=== PATIENT | male | born 1980 | race Caucasian/White ===

== ENCOUNTER 2023-03-12 15:12 | Emergency (ER) | payer BC, OTHER, SELFPAY ==
[2023-03-12] VITALS (50 sets, daily range): BP systolic 149–189; BP diastolic 99–122; PULSE 71–102; RESP 11–30; TEMP 36.6; O2SAT 91–98; BMI 29.9
--- NOTE | 2023-03-12 15:19 | DI.RAD.S_ITS ---
PROCEDURE: XR CHEST 1V INDICATIONS: Chest pain TECHNIQUE: One view of the chest was acquired. COMPARISON: None. FINDINGS: Surgical changes and devices: None. Lungs and pleura: Lungs are clear. No pleural effusions or pneumothorax. Mediastinum: Mediastinal contours appear normal. Heart size is normal. Bones and chest wall: No suspicious bony lesions. Overlying soft tissues appear unremarkable. IMPRESSION: No acute cardiopulmonary disease process. Dictated by: Magalis Blood MD, PhD on 03/12/2023 at 16:17 Approved by: Magalis Blood MD, PhD on 03/12/2023 at 16:17
[2023-03-12 15:31] LABS: Add Manual Diff / Slide Review NO; Basophils Absolute Auto 100 /uL (0-100); Basophils Percent Auto 0.9 % (0-2); Eosinophils Absolute Auto 400 /uL (0-450); Hematocrit 46.7 % (41-53); Hemoglobin 16.2 g/dL (13.5-17.5); Lymphocytes Absolute Auto 1800 /uL (1100-4500); Lymphocytes Percent Auto 24.6 % (25-40); Mean Corpuscular HGB Conc 34.7 % (30-36); Mean Corpuscular Hemoglobin 31.1 PG (26-34); Mean Corpuscular Volume 89.5 fL (80-100); Monocytes Absolute Auto 800 /uL (0-900); Monocytes Percent Auto 10.8 % (3-14); Neutrophils Absolute Auto 4200 /uL (1500-7000); Neutrophils Percent Auto 58.7 % (50-75); Platelet Count 239 X10^3/uL (150-400); Red Blood Cell Count 5.22 X10^6/uL (4.5-5.9); Red Cell Distribution Width 12.2 % (11.6-14.8); White Blood Cell Count 7.2 X10^3/uL (4.5-11.0)
[2023-03-12 15:44] LABS: Alanine Aminotransferase 72 IU/L (<50); Albumin 4.9 g/dL (3.5-5.0); Albumin Globulin Ratio 1.4 (1.0-2.8); Alkaline Phosphatase 90 U/L (38-126); Aspartate Aminotransferase 40 IU/L (17-59); BUN Creatinine Ratio 20.7 (6-22); Bilirubin Total 0.5 mg/dL (0.2-1.3); Blood Urea Nitrogen 17 mg/dL (9-20); Calcium 9.8 mg/dL (8.4-10.2); Carbon Dioxide 27 mmol/L (22-32); Chloride 98 mmol/L (98-107); Creatine Kinase 104 U/L (55-170); Estimated Glomerular Filt Rate > 60 mL/min (>60); Globulin 3.4 g/dL (1.7-4.1); Glucose 106 mg/dL (70-100); HEMOLYSIS < 15 (0-50); Lipase 82 U/L (23-300); Potassium 3.8 mmol/L (3.4-5.1); Sodium 135 mmol/L (137-145); Total Protein 8.3 g/dL (6.3-8.2)
--- NOTE | 2023-03-12 15:54 | ED_ITS ---
HPI - Chest Pain <Hussain Lopez DO - Last Filed: 03/18/23 17:59> General Chief Complaint: Chest Pain Stated Complaint: cardiac issues Time Seen by Provider: 03/12/23 15:19 Source: patient Mode of arrival: Ambulatory Limitations: no limitations History of Present Illness HPI narrative: Patient is a 42-year-old male who is here for evaluation of chest tightness and lightheadedness. He states that this afternoon he was at his normal state of health. He stated that he moved something heavy and then went up some stairs in order to answer a work call when he suddenly started to not feel very well. He stated that currently his symptoms have improved from when they were at its worse but they are not completely gone. He does have a history of asthma does not feel like his breathing has changed at all. He states he really did not have chest pain but just some heaviness. He stated that his blood pressure was elevated and he was lightheaded. He is never had any symptoms like this in the past. No lower extremity swelling. No abdominal pain or nausea or vomiting. Related Data Home Medications Medication Instructions Recorded Confirmed ALBUTEROL SULFATE (Ventolin / ##0 10/07/09 03/06/19 Proventil) FLUTICASONE 44MCG INHALER 1 spray INH ##0 10/07/09 03/06/19 (FLOVENT) Previous Rx's Medication Instructions Recorded sulfamethoxazole 800 1 tab PO BID #20 tabs 03/06/19 mg-trimethoprim 160 mg tablet (Bactrim DS) Allergies Allergy/AdvReac Type Severity Reaction Status Date / Time No Known Drug Allergies Allergy Verified 03/12/23 15:23 Review of Systems <Hussain Lopez DO - Last Filed: 03/18/23 17:59> Constitutional Constitutional: Reports system reviewed and no additional complaints, except as documented Cardiovascular Cardiovascular: Reports system reviewed and no additional complaints, except as documented Respiratory Respiratory: Reports system reviewed and no additional complaints, except as documented Gastrointestinal Gastrointestinal: Reports system reviewed and no additional complaints, except as documented Integumentary/Breasts Skin/Breast: Reports system reviewed and no additional complaints, except as documented Hematologic/Lymphatic On Anticoagulants: No Patient History <Hussain Lopez DO - Last Filed: 03/18/23 17:59> Social History Smoking Status: Never smoker Smoking Status: Never smoker alcohol intake frequency: 3 or more drinks per day Substance Use Type: crack/cocaine Exam <DO Cindi Laughlin Last Filed: 03/18/23 17:59> Initial Vital Signs Initial Vital Signs: Vital Signs Pulse Rate 102 H 03/12/23 15:18 Respiratory Rate 18 03/12/23 15:18 Pulse Oximetry 95 03/12/23 15:18 Const General: cooperative, comfortable and No ill appearing HENMT Head: normal to inspection and normocephalic Resp Effort & Inspection: not labored and tachypneic Auscultation: wheezes Cardio Rate: regular rate Rhythm: regular rhythm GI Inspection: normal to inspection and non-distended Skin General: no rashes or lesions noted Neuro General: patient alert, patient awake and moves all extremities Speech: speech normal Extrem General: No edema <DO Cindi Muhammad Last Filed: 03/12/23 23:56> Initial Vital Signs Initial Vital Signs: Vital Signs Pulse Rate 102 H 03/12/23 15:18 Respiratory Rate 18 03/12/23 15:18 Pulse Oximetry 95 03/12/23 15:18 Scores <DO Cindi Laughlin Last Filed: 03/18/23 17:59> HEART Score Heart Score history: Slightly Suspicious Heart Score EKG: Normal Heart Score Age: < 45 years old Heart Score risk factors: 1-2 risk factors Heart Score troponin: < or = to normal limit Heart Score Total: 1 <DO Cindi Muhammad Last Filed: 03/12/23 23:56> HEART Score Heart Score Total: 1 Course <DO Cindi Laughlin Last Filed: 03/18/23 17:59> Orders Ordered: ED Orders 03/12/23 15:19 XR chest 1V Stat 03/12/23 15:25 Complete Blood Count AUTO DIFF Stat Comprehensive Metabolic Panel Stat Lipase Stat Troponin & CK Cardiac Panel Stat 03/12/23 15:50 EKG-12 Lead Stat 03/12/23 18:30 Troponin & CK Cardiac Panel Stat Vital Signs Vital signs: Vital Signs - 8 hr 03/12/23 15:55 03/12/23 15:55 03/12/23 16:00 Pulse Rate 87 86 Respiratory Rate 18 16 Blood Pressure 173/114 H Pulse Oximetry 94 94 Oxygen Delivery Method 03/12/23 16:00 03/12/23 16:05 03/12/23 16:05 Pulse Rate 83 Respiratory Rate 19 Blood Pressure 182/111 H 181/107 H Pulse Oximetry 94 Oxygen Delivery Method 03/12/23 16:10 03/12/23 16:10 03/12/23 16:15 Pulse Rate 82 Respiratory Rate 21 Blood Pressure 173/108 H 173/107 H Pulse Oximetry 93 Oxygen Delivery Method 03/12/23 16:15 03/12/23 16:20 03/12/23 16:20 Pulse Rate 81 78 Respiratory Rate 13 12 Blood Pressure 173/110 H Pulse Oximetry 94 94 Oxygen Delivery Method 03/12/23 16:25 03/12/23 16:25 03/12/23 16:30 Pulse Rate 90 Respiratory Rate Blood Pressure 175/118 H 175/110 H Pulse Oximetry 94 Oxygen Delivery Method 03/12/23 16:30 03/12/23 16:36 03/12/23 16:36 Pulse Rate 87 87 Respiratory Rate 20 Blood Pressure 162/109 H Pulse Oximetry 94 93 Oxygen Delivery Method 03/12/23 16:40 03/12/23 16:40 03/12/23 16:45 Pulse Rate 79 Respiratory Rate 18 Blood Pressure 168/111 H 172/112 H Pulse Oximetry 93 Oxygen Delivery Method 03/12/23 16:45 03/12/23 16:50 03/12/23 16:50 Pulse Rate 80 79 Respiratory Rate 19 13 Blood Pressure 158/104 H Pulse Oximetry 94 95 Oxygen Delivery Method 03/12/23 16:55 03/12/23 16:55 03/12/23 17:00 Pulse Rate 84 Respiratory Rate 22 Blood Pressure 152/106 H 157/105 H Pulse Oximetry 95 Oxygen Delivery Method 03/12/23 17:00 03/12/23 17:05 03/12/23 17:05 Pulse Rate 81 78 Respiratory Rate 22 16 Blood Pressure 158/108 H Pulse Oximetry 94 93 Oxygen Delivery Method 03/12/23 17:10 03/12/23 17:10 03/12/23 17:15 Pulse Rate 77 Respiratory Rate 18 Blood Pressure 169/112 H 155/109 H Pulse Oximetry 93 Oxygen Delivery Method 03/12/23 17:15 03/12/23 17:20 03/12/23 17:20 Pulse Rate 74 76 Respiratory Rate 16 25 H Blood Pressure 154/107 H Pulse Oximetry 92 93 Oxygen Delivery Method 03/12/23 17:25 03/12/23 17:25 03/12/23 17:30 Pulse Rate 76 Respiratory Rate 15 Blood Pressure 149/108 H 154/110 H Pulse Oximetry 94 Oxygen Delivery Method 03/12/23 17:30 03/12/23 17:35 03/12/23 17:35 Pulse Rate 75 77 Respiratory Rate 30 H 17 Blood Pressure 167/112 H Pulse Oximetry 93 94 Oxygen Delivery Method 03/12/23 17:40 03/12/23 17:40 03/12/23 17:45 Pulse Rate 75 Respiratory Rate 11 L Blood Pressure 163/107 H 159/105 H Pulse Oximetry 91 Oxygen Delivery Method 03/12/23 17:45 03/12/23 17:50 03/12/23 17:50 Pulse Rate 76 79 Respiratory Rate 16 19 Blood Pressure 160/102 H Pulse Oximetry 94 94 Oxygen Delivery Method 03/12/23 17:55 03/12/23 17:55 03/12/23 18:00 Pulse Rate 78 77 Respiratory Rate 14 19 Blood Pressure 157/106 H Pulse Oximetry 95 95 Oxygen Delivery Method 03/12/23 18:00 03/12/23 18:05 03/12/23 18:05 Pulse Rate 81 Respiratory Rate 18 Blood Pressure 162/105 H 163/108 H Pulse Oximetry 94 Oxygen Delivery Method 03/12/23 18:10 03/12/23 18:10 03/12/23 18:15 Pulse Rate 77 Respiratory Rate 21 Blood Pressure 152/102 H 156/107 H Pulse Oximetry 94 Oxygen Delivery Method 03/12/23 18:15 03/12/23 18:24 03/12/23 18:24 Pulse Rate 79 75 Respiratory Rate 23 18 Blood Pressure 172/107 H Pulse Oximetry 94 97 Oxygen Delivery Method 03/12/23 18:25 03/12/23 18:25 03/12/23 18:30 Pulse Rate 74 75 Respiratory Rate 16 14 Blood Pressure 170/99 H Pulse Oximetry 97 95 Oxygen Delivery Method 03/12/23 18:30 03/12/23 18:35 03/12/23 18:35 Pulse Rate 78 Respiratory Rate 15 Blood Pressure 176/116 H 162/104 H Pulse Oximetry 96 Oxygen Delivery Method 03/12/23 18:40 03/12/23 18:40 03/12/23 18:45 Pulse Rate 76 Respiratory Rate 15 Blood Pressure 153/100 H 157/104 H Pulse Oximetry 96 Oxygen Delivery Method 03/12/23 18:45 03/12/23 18:50 03/12/23 18:50 Pulse Rate 75 71 Respiratory Rate 20 14 Blood Pressure 156/106 H Pulse Oximetry 96 94 Oxygen Delivery Method 03/12/23 18:55 03/12/23 18:55 03/12/23 19:00 Pulse Rate 77 74 Respiratory Rate 17 19 Blood Pressure 166/111 H Pulse Oximetry 95 94 Oxygen Delivery Method 03/12/23 19:01 03/12/23 19:01 03/12/23 19:05 Pulse Rate 81 Respiratory Rate 22 Blood Pressure 164/113 H 172/122 H Pulse Oximetry 95 Oxygen Delivery Method 03/12/23 19:05 03/12/23 19:10 03/12/23 19:10 Pulse Rate 82 80 Respiratory Rate 20 Blood Pressure 159/109 H Pulse Oximetry 95 95 Oxygen Delivery Method 03/12/23 19:20 03/12/23 19:20 Pulse Rate 78 Respiratory Rate 16 Blood Pressure 162/106 H Pulse Oximetry 94 Oxygen Delivery Method Room Air <Abelino Liz, DO - Last Filed: 03/12/23 23:56> Orders Ordered: ED Orders 03/12/23 15:19 XR chest 1V Stat 03/12/23 15:25 Complete Blood Count AUTO DIFF Stat Comprehensive Metabolic Panel Stat Lipase Stat Troponin & CK Cardiac Panel Stat 03/12/23 15:50 EKG-12 Lead Stat 03/12/23 18:30 Troponin & CK Cardiac Panel Stat Vital Signs Vital signs: Vital Signs - 8 hr 03/12/23 15:55 03/12/23 15:55 03/12/23 16:00 Pulse Rate 87 86 Respiratory Rate 18 16 Blood Pressure 173/114 H Pulse Oximetry 94 94 Oxygen Delivery Method 03/12/23 16:00 03/12/23 16:05 03/12/23 16:05 Pulse Rate 83 Respiratory Rate 19 Blood Pressure 182/111 H 181/107 H Pulse Oximetry 94 Oxygen Delivery Method 03/12/23 16:10 03/12/23 16:10 03/12/23 16:15 Pulse Rate 82 Respiratory Rate 21 Blood Pressure 173/108 H 173/107 H Pulse Oximetry 93 Oxygen Delivery Method 03/12/23 16:15 03/12/23 16:20 03/12/23 16:20 Pulse Rate 81 78 Respiratory Rate 13 12 Blood Pressure 173/110 H Pulse Oximetry 94 94 Oxygen Delivery Method 03/12/23 16:25 03/12/23 16:25 03/12/23 16:30 Pulse Rate 90 Respiratory Rate Blood Pressure 175/118 H 175/110 H Pulse Oximetry 94 Oxygen Delivery Method 03/12/23 16:30 03/12/23 16:36 03/12/23 16:36 Pulse Rate 87 87 Respiratory Rate 20 Blood Pressure 162/109 H Pulse Oximetry 94 93 Oxygen Delivery Method 03/12/23 16:40 03/12/23 16:40 03/12/23 16:45 Pulse Rate 79 Respiratory Rate 18 Blood Pressure 168/111 H 172/112 H Pulse Oximetry 93 Oxygen Delivery Method 03/12/23 16:45 03/12/23 16:50 03/12/23 16:50 Pulse Rate 80 79 Respiratory Rate 19 13 Blood Pressure 158/104 H Pulse Oximetry 94 95 Oxygen Delivery Method 03/12/23 16:55 03/12/23 16:55 03/12/23 17:00 Pulse Rate 84 Respiratory Rate 22 Blood Pressure 152/106 H 157/105 H Pulse Oximetry 95 Oxygen Delivery Method 03/12/23 17:00 03/12/23 17:05 03/12/23 17:05 Pulse Rate 81 78 Respiratory Rate 22 16 Blood Pressure 158/108 H Pulse Oximetry 94 93 Oxygen Delivery Method 03/12/23 17:10 03/12/23 17:10 03/12/23 17:15 Pulse Rate 77 Respiratory Rate 18 Blood Pressure 169/112 H 155/109 H Pulse Oximetry 93 Oxygen Delivery Method 03/12/23 17:15 03/12/23 17:20 03/12/23 17:20 Pulse Rate 74 76 Respiratory Rate 16 25 H Blood Pressure 154/107 H Pulse Oximetry 92 93 Oxygen Delivery Method 03/12/23 17:25 03/12/23 17:25 03/12/23 17:30 Pulse Rate 76 Respiratory Rate 15 Blood Pressure 149/108 H 154/110 H Pulse Oximetry 94 Oxygen Delivery Method 03/12/23 17:30 03/12/23 17:35 03/12/23 17:35 Pulse Rate 75 77 Respiratory Rate 30 H 17 Blood Pressure 167/112 H Pulse Oximetry 93 94 Oxygen Delivery Method 03/12/23 17:40 03/12/23 17:40 03/12/23 17:45 Pulse Rate 75 Respiratory Rate 11 L Blood Pressure 163/107 H 159/105 H Pulse Oximetry 91 Oxygen Delivery Method 03/12/23 17:45 03/12/23 17:50 03/12/23 17:50 Pulse Rate 76 79 Respiratory Rate 16 19 Blood Pressure 160/102 H Pulse Oximetry 94 94 Oxygen Delivery Method 03/12/23 17:55 03/12/23 17:55 03/12/23 18:00 Pulse Rate 78 77 Respiratory Rate 14 19 Blood Pressure 157/106 H Pulse Oximetry 95 95 Oxygen Delivery Method 03/12/23 18:00 03/12/23 18:05 03/12/23 18:05 Pulse Rate 81 Respiratory Rate 18 Blood Pressure 162/105 H 163/108 H Pulse Oximetry 94 Oxygen Delivery Method 03/12/23 18:10 03/12/23 18:10 03/12/23 18:15 Pulse Rate 77 Respiratory Rate 21 Blood Pressure 152/102 H 156/107 H Pulse Oximetry 94 Oxygen Delivery Method 03/12/23 18:15 03/12/23 18:24 03/12/23 18:24 Pulse Rate 79 75 Respiratory Rate 23 18 Blood Pressure 172/107 H Pulse Oximetry 94 97 Oxygen Delivery Method 03/12/23 18:25 03/12/23 18:25 03/12/23 18:30 Pulse Rate 74 75 Respiratory Rate 16 14 Blood Pressure 170/99 H Pulse Oximetry 97 95 Oxygen Delivery Method 03/12/23 18:30 03/12/23 18:35 03/12/23 18:35 Pulse Rate 78 Respiratory Rate 15 Blood Pressure 176/116 H 162/104 H Pulse Oximetry 96 Oxygen Delivery Method 03/12/23 18:40 03/12/23 18:40 03/12/23 18:45 Pulse Rate 76 Respiratory Rate 15 Blood Pressure 153/100 H 157/104 H Pulse Oximetry 96 Oxygen Delivery Method 03/12/23 18:45 03/12/23 18:50 03/12/23 18:50 Pulse Rate 75 71 Respiratory Rate 20 14 Blood Pressure 156/106 H Pulse Oximetry 96 94 Oxygen Delivery Method 03/12/23 18:55 03/12/23 18:55 03/12/23 19:00 Pulse Rate 77 74 Respiratory Rate 17 19 Blood Pressure 166/111 H Pulse Oximetry 95 94 Oxygen Delivery Method 03/12/23 19:01 03/12/23 19:01 03/12/23 19:05 Pulse Rate 81 Respiratory Rate 22 Blood Pressure 164/113 H 172/122 H Pulse Oximetry 95 Oxygen Delivery Method 03/12/23 19:05 03/12/23 19:10 03/12/23 19:10 Pulse Rate 82 80 Respiratory Rate 20 Blood Pressure 159/109 H Pulse Oximetry 95 95 Oxygen Delivery Method 03/12/23 19:20 03/12/23 19:20 Pulse Rate 78 Respiratory Rate 16 Blood Pressure 162/106 H Pulse Oximetry 94 Oxygen Delivery Method Room Air MDM - Chest Pain <Hussain Lopez DO - Last Filed: 03/18/23 17:59> Lab Data Attestation: I reviewed the patient's lab results. 03/12/23 15:25 03/12/23 15:25 Labs: Lab Results 03/12/23 03/12/23 Range/Units 15:25 18:30 WBC 7.2 (4.5-11.0) X10^3/uL RBC 5.22 (4.5-5.9) X10^6/uL Hgb 16.2 (13.5-17.5) g/dL Hct 46.7 (41-53) % MCV 89.5 (80-100) fL MCH 31.1 (26-34) PG MCHC 34.7 (30-36) % RDW 12.2 (11.6-14.8) % Plt Count 239 (150-400) X10^3/uL Neut % (Auto) 58.7 (50-75) % Lymph % (Auto) 24.6 L (25-40) % Bland % (Auto) 10.8 (3-14) % Eos % (Auto) 5.0 H (2-4) % Baso % (Auto) 0.9 (0-2) % Neut # (Auto) 4200 (0357-2177) /uL Lymph # (Auto) 1800 (4356-5589) /uL Bland # (Auto) 800 (0-900) /uL Eos # (Auto) 400 (0-450) /uL Baso # (Auto) 100 (0-100) /uL Sodium 135 L (137-145) mmol/L Potassium 3.8 (3.4-5.1) mmol/L Chloride 98 (98-107) mmol/L Carbon Dioxide 27 (22-32) mmol/L BUN 17 (9-20) mg/dL Creatinine 0.82 (0.66-1.25) mg/dL Estimated GFR > 60 (>60) mL/min BUN/Creatinine Ratio 20.7 (6-22) Glucose 106 H (70-100) mg/dL Calcium 9.8 (8.4-10.2) mg/dL Total Bilirubin 0.5 (0.2-1.3) mg/dL AST 40 (17-59) IU/L ALT 72 H (<50) IU/L Alkaline Phosphatase 90 (38-126) U/L Total Creatine Kinase 104 94 (55-170) U/L Troponin I < 0.012 < 0.012 (0.01-0.034) ng/mL Total Protein 8.3 H (6.3-8.2) g/dL Albumin 4.9 (3.5-5.0) g/dL Globulin 3.4 (1.7-4.1) g/dL Albumin/Globulin Ratio 1.4 (1.0-2.8) Lipase 82 (23-300) U/L Imaging Data Chest x-ray: Radiologist's Impression: PROCEDURE: XR CHEST 1V INDICATIONS: Chest pain TECHNIQUE: One view of the chest was acquired. COMPARISON: None. FINDINGS: Surgical changes and devices: None. Lungs and pleura: Lungs are clear. No pleural effusions or pneumothorax. Mediastinum: Mediastinal contours appear normal. Heart size is normal. Bones and chest wall: No suspicious bony lesions. Overlying soft tissues appear unremarkable. IMPRESSION: No acute cardiopulmonary disease process. ECG Data Attestation: I personally reviewed and interpreted this ECG as follows: Interpretation: Sinus rhythm Ventricular rate 93 Left axis deviation Normal QRS Normal QTC No ST T wave changes MDM Narrative Medical decision making narrative: Patient does have history of cocaine use but he states he did not use it today. EKG troponin negative. Is somewhat hypertensive but it appears that he has been hypertensive for ?years? he is not on any medications. Given his history a 2nd troponin is warranted. Care turned over to Dr. Liz to follow up on repeat troponin and disposition. <Abelino Liz, - Last Filed: 03/12/23 23:56> Lab Data Labs: Lab Results 03/12/23 03/12/23 Range/Units 15:25 18:30 WBC 7.2 (4.5-11.0) X10^3/uL RBC 5.22 (4.5-5.9) X10^6/uL Hgb 16.2 (13.5-17.5) g/dL Hct 46.7 (41-53) % MCV 89.5 (80-100) fL MCH 31.1 (26-34) PG MCHC 34.7 (30-36) % RDW 12.2 (11.6-14.8) % Plt Count 239 (150-400) X10^3/uL Neut % (Auto) 58.7 (50-75) % Lymph % (Auto) 24.6 L (25-40) % Bland % (Auto) 10.8 (3-14) % Eos % (Auto) 5.0 H (2-4) % Baso % (Auto) 0.9 (0-2) % Neut # (Auto) 4200 (7367-2169) /uL Lymph # (Auto) 1800 (8267-5171) /uL Bland # (Auto) 800 (0-900) /uL Eos # (Auto) 400 (0-450) /uL Baso # (Auto) 100 (0-100) /uL Sodium 135 L (137-145) mmol/L Potassium 3.8 (3.4-5.1) mmol/L Chloride 98 (98-107) mmol/L Carbon Dioxide 27 (22-32) mmol/L BUN 17 (9-20) mg/dL Creatinine 0.82 (0.66-1.25) mg/dL Estimated GFR > 60 (>60) mL/min BUN/Creatinine Ratio 20.7 (6-22) Glucose 106 H (70-100) mg/dL Calcium 9.8 (8.4-10.2) mg/dL Total Bilirubin 0.5 (0.2-1.3) mg/dL AST 40 (17-59) IU/L ALT 72 H (<50) IU/L Alkaline Phosphatase 90 (38-126) U/L Total Creatine Kinase 104 94 (55-170) U/L Troponin I < 0.012 < 0.012 (0.01-0.034) ng/mL Total Protein 8.3 H (6.3-8.2) g/dL Albumin 4.9 (3.5-5.0) g/dL Globulin 3.4 (1.7-4.1) g/dL Albumin/Globulin Ratio 1.4 (1.0-2.8) Lipase 82 (23-300) U/L MDM Narrative Medical decision making narrative: Patient does have history of cocaine use but he states he did not use it today. EKG troponin negative. Is somewhat hypertensive but it appears that he has been hypertensive for ?years? he is not on any medications. Given his history a 2nd troponin is warranted. Care turned over to Dr. Liz to follow up on repeat troponin and disposition. [1800] (Agusto) Patient received in sign out from [Jessica]. I have reviewed the clinical course and performed an independent history and physical exam. [42] year old patient presents with chest pain Multiple etiologies for patient's symptoms considered including, but not limited to: [ cardiac ischemia versus hypertensive emergency versus pneumonia versus other] Prior Charts reviewed in our EMR Primary Historian: patient Labs reviewed and interpreted by myself: no significant lab abnormalities requiring intervention, troponin negative x2 Imaging reviewed: chest x-ray demonstrates no acute process HEART SCORE: 1 Patient's symptoms improved over duration of stay with above-stated therapies. Findings and discharge diagnosis discussed with patient/family followed by verbalization of understanding Return precautions discussed with patient/family whom verbalize understanding of diagnosis and plan Discharge Plan Departure Patient Disposition: Home Clinical Impression: Atypical chest pain Instructions: DI for Atypical Chest Pain Activity Restrictions/Additional Instructions: *You have been diagnosed with [atypical chest pain. As we discussed your history and physical exam are reassuring as are the labs, EKG and chest x-ray. There is no evidence of heart attack, blood clot, pneumonia or other diagnosis that requires a specific or immediate intervention] *What to do: *Please continue to take your regular medications as directed. [ ] New medication prescriptions sent to your pharmacy: [ ] [ ] New medication written as a paper prescription [ ] No new medications given *Please follow up with your primary care provider in 2-3 days, call for an appointment. Let them know you were seen in the Emergency Department and that we ask that you be seen in follow up. We will electronically transmit a record of today's note if your PCP is in our system *If you do not have a primary care provider please contact the [facility] Resource line at [phone]. They will ask some questions about your medical history and help get you set up with a doctor in the community. *Return to Emergency Department if you should have any new, worsening or concerning symptoms, such as [fever greater than 101 F, shaking chills, worsening pain, persistent vomiting or other bothersome symptoms] Prescriptions: No Action sulfamethoxazole-trimethoprim [Bactrim DS] 800-160 mg tablet 1 tab PO BID Qty: 20 0RF FLUTICASONE 44MCG INHALER (FLOVENT) 1 spray INH Qty: 0 ALBUTEROL SULFATE (Ventolin / Proventil) Qty: 0 Referrals: Rian Blandon MD [Primary Care Provider] - Stand Alone Forms: Patient Portal/API
[2023-03-12 15:55] LABS: Troponin I < 0.012 ng/mL (0.01-0.034)
[2023-03-12 18:49] LABS: Creatine Kinase 94 U/L (55-170)
[2023-03-12 19:02] LABS: Troponin I < 0.012 ng/mL (0.01-0.034)
== END 2023-03-12 19:37 | disposition home or self-care (01) ==
PROVIDERS: Emergency Medicine; Emergency Provider Emergency Medicine; PCP Family Medicine
DX: R07.9 Chest pain, unspecified (principal); I10 Essential (primary) hypertension; R79.89 Other specified abnormal findings of blood chemistry
CPT/HCPCS: 36415; 71045; 80053; 82550; 83690; 84484; 85025; 93005; 93010; 99284